=== PATIENT | female | born 1970 | race Hispanic/Latino ===

== ENCOUNTER 2016-08-28 19:31 | Emergency (ER) | payer OTHER ==
[~2016-08-28] VITALS: Ht 154.9 cm; Wt 56.7 kg
[~2016-08-28 19:31] MED LIST: DICLOFENAC SOD75 MG PO; ESCITALOPRAM10 MG PO; INDOMETHACIN ER75 MG PO; LEVOTHROID0.125 MG PO; VITAMIN D50000 IU PO
[2016-08-28 19:34] VITALS: BP 149/72
--- NOTE | 2016-08-28 20:04 | ED GI/GU/ABDOMINAL COMPLAINT ---
History of Present Illness General Chief Complaint: Allergy Symptoms Stated Complaint: ALLERGIC REACTION TO MEDS Source: patient Exam Limitations: no limitations Vital Signs & Intake/Output Vital Signs & Intake/Output Vital Signs Date Time Temp Pulse Resp B/P B/P Pulse O2 O2 Flow FiO2 Mean Ox Delivery Rate 08/28 1933 96.8 68 16 149/72 98 Room Air Allergies Coded Allergies: No Known Allergies (08/28/16) Reconcile Medications Cephalexin (Keflex) 500 MG CAPSULE 1 CAP PO TID uti ERGOCALCIFEROL (VITAMIN D2) (Vitamin D2) 50,000 IU SGL 50,000 IU PO Q30D VITAMIN D SUPPLEMENT (Reported) Escitalopram Oxalate 10 MG TAB 1 TAB PO DAILY MENTAL HEALTH (Reported) Indomethacin (Indomethacin ER) 75 MG CER 75 MG PO BID Pericarditis Levothyroxine Sodium (Levothroid) 0.125 MG TAB 0.125 MG PO DAILY AC THYROID ( Reported) Metronidazole (Flagyl) 500 MG TABLET 1 TAB PO BID infection Triage Note: PT TO ED C/O RASH/REACTION TO YEAST INFECTION MEDS. PT HAS TRIED MULTIPLE MEDICATIONS FOR SAME IN PAST PRESCRIBED BY OBGYN, STATES SHE'S ALLERGIC TO MULTIPLE. PT REPORTS LOCALIZED REACTION TO VAGINAL REGION. -[id number] SYMPTOMS Triage Nurses Notes Reviewed? yes ? n Is pt currently ? No HPI: Ms. Dupree is 46 yo f w/ PMH hypothyroidism and pericarditis presenting to the ED for vaginal discharge. Pt states she's had a yeast infection for over 2 months. She was seen as an outpatient by her OBGYN 2 months ago, noted to have a UTI and a yeast infection. Pt was given Abx and diflucan. Pt's dysuria improved some, but never truly resolved. Patient states she saw her LUGGAGE REPAIRER again and she was started on metronidazole cream, estradiol cream and another set of antibiotics. She states that these have not helped her symptoms. She continues to have vaginal itching as well is a white thick discharge. At times of discharge is foul smelling. Pain is worse with urination and she feels that her vulva is quite raw and irritated. Patient states that after she told her OB /[employer] M[employer] SET UP OPERATOR that her symptoms had not resolved, he told her that she likely was allergic to Diflucan and therefore she has not taken it since. Patient is and sexually active without condom use. She had a 1 night affair approximately 2 months ago, but she did use protection in the form of a condom at that point in time. No fevers or chills. No nausea vomiting diarrhea or abdominal pain. No CVA tenderness bilaterally. (HOWARD LOMBARDI MD) Past History Travel History Traveled to [place] past 21 day No Medical History Any Pertinent Medical History? see below for history Neurological: NONE EENT: NONE Cardiovascular: PeRICARDITIS Respiratory: NONE Gastrointestinal: NONE Hepatic: NONE Renal: NONE Musculoskeletal: NONE Psychiatric: NONE Endocrine: hypothyroidism Blood Disorders: NONE Cancer(s): NONE C[employer] M[employer] SET UP OPERATOR/Reproductive: CHRONIC YEAST INFX History of MRSA: No History of VRE: No History of CDIFF: No Influenza Vaccine: 01/16/15 Surgical History Surgical History: hysterectomy (for uterine fibroids), tubal ligation, right leg fracture with metal plates Psychosocial History Who do you live with Spouse Services at Home None What is your primary language [place]se Tobacco Use: Never used Family History Family History, If Any: BROTHER (heart disease). . BROTHER (Heart attacke <50 years old). . MOTHER (dementia (Alz) and RAHeart disease and breast cancer). FATHER (Heart disease before age 60Hypothyroidism). Hx Contributory? No (HOWARD LOMBARDI MD) Review of Systems Review of Systems Constitutional: Reports: see HPI. EENTM: Reports: no symptoms. Respiratory: Reports: no symptoms. Cardiovascular: Reports: no symptoms. GI: Reports: no symptoms. Genitourinary: Reports: discharge, dysuria, frequency, pain. Denies: hesitation. Musculoskeletal: Reports: no symptoms. Skin: Reports: no symptoms. Neurological/Psychological: Reports: no symptoms. Hematologic/Endocrine: Reports: no symptoms. Immunologic/Allergic: Reports: no symptoms. All Other Systems: Reviewed and Negative (HOWARD LOMBARDI MD) Physical Exam Physical Exam Gastrointestinal: normal bowel sounds Pelvic: tender w/ cervical motion, tender adnexa, mild swelling to the vulva. Obvious thick cottage cheese like discharge within the vaginal vault. Tenderness to palpation of the left adnexa with some mild CMT. Also some caldwell appearing discharge within the vaginal canal Comments: Well-developed well-nourished person in no acute distress HEENT: Normal EENT exam, extraocular motion intact, no nystagmus. PERRLA. Nose is atraumatic. Neck: Supple, no lymphadenopathy, normal range of motion without pain or tenderness Back: Nontender, no CVA tenderness. Full range of motion Cardiovascular: Regular rate and rhythms no murmurs rubs or gallops, normal JVP Respiratory: Chest nontender. No respiratory distress.breath sounds clear to auscultation bilaterally Abdomen: Soft, nontender nondistended, no appreciable organomegaly. Normal bowel sounds. No ascites Extremity: No edema, no calf tenderness to palpation, normal and equal pulses. Neuro: Alert oriented x3, motor sensory normal, cranial nerves II through XII grossly intact. Skin: No appreciable rash on exposed skin, skin is warm and dry. Psych: Mood and affect is normal, memory and judgment is normal. Core Measures ACS in differential dx? No Severe Sepsis Present: No Septic Shock Present: No (MARIA C GRIFFIN,HOWARD) Progress Differential Diagnosis: ovarian cyst, ovarian torsion, PID/cervicitis, PUD/GERD, UTI/pyelo, vaginal candidiasis Plan of Care: Orders Procedure Date/time Status CULTURE,URINE 08/28 2018 Active TRICHOMONAS 08/28 2018 Complete POTASSIUM HYDROXIDE (AISLINN) 08/28 2018 Complete GENITAL CULTURE 08/28 2018 Active CHLAMYDIA-GC DNA PROBE 08/28 2018 Active URINE 08/28 2018 Complete URINALYSIS 08/28 2018 Complete Laboratory Tests 08/28/162032: Urinalysis MOD H, Urine Color YEL, Urine Clarity HAZY H, Urine pH 6.5, Ur Specific [place] 1.020, Urine Protein TRACE H, Urine Ketones NEG, Urine Nitrite NEG, Urine Bilirubin NEG, Urine Urobilinogen 0.2, Ur Leukocyte Esterase MOD H, Ur Microscopic SEDIMENT EXAMINED, Urine RBC 1-3, Urine WBC 15-25 H, Ur Epithelial Cells FEW, Urine Bacteria MOD H, Urine Mucus MOD H, Micro UA Comment BUDDING YEAST H, Urine Hemoglobin NEG, Urine Glucose NEG, Urine Test NEGATIVE Microbiology 08/28 2049 GENITAL: GC DNA Probe - RECD 08/28 2049 GENITAL: Chlamydia DNA Probe (DESHAUN) - RECD 08/28 2049 GENITAL: AISLINN Preparation - COMP YEAST MOLD 08/28 2049 GENITAL: Trichomonas Preparation - COMP 08/28 2049 GENITAL: Genital Culture - RECD 08/28 2032 URINE ROUT: Urine Culture - RECD Patient is a generally well-appearing female with likely symptoms of vaginal candidiasis. Somewhat inappropriate treatment of candidiasis with estradiol cream and metronidazole cream. Patient was told from provider that she was allergic to Diflucan, however it is likely that her symptoms (itching, pain, and erythema) were all related to her partially untreated vaginal candidiasis, not an allergic reaction. Given the recent sexual encounter with an unknown person, and the patient's clinical examination with mild CMT tenderness at the left adnexa, plan to treat as PID. Vaginal swabs obtained and sent to the lab. Will administer Diflucan here in the emergency department and observed the patient for 30 minutes prior to discharge to confirm that she is in fact not allergic to Diflucan. We'll treat for PID with both ceftriaxone and azithromycin as well as metronidazole here in the emergency department. Clotrimazole cream was applied to the external vulva to improve her overall comfort. Patient understands the plan. Patient requested a referral for any LUGGAGE REPAIRER's within the area. Given 2 names of both the provider on-call and as well as Dr. Wu. He she will follow up with cultures obtained today to know whether to continue with her metronidazole for the next 2 weeks or not. (MARIA C GRIFFIN,HOWARD) Initial ED EKG: none (HOWARD LOMBARDI MD) Departure Departure Time of Disposition: 2110 Disposition: HOME OR SELF CARE Condition: Stable Clinical Impression Primary Impression: Vaginal candidiasis Secondary Impressions: UTI (urinary tract infection) Qualifiers: Urinary tract infection type: site unspecified Hematuria presence: without hematuria Qualified Code: N39.0 - Urinary tract infection, site not specified Vaginal discharge Vaginal pain Referrals: JOSE ALBERTO GRIFFIN,ANALILIA Carrasco (PCP/Family) SABRA GRIFFIN,JAYNE WU MD,SALEEM Peña Additional Instructions: Please take the full course of metronidazole. Make sure you do not drink alcohol while you are taking this. It will make you extremely sick with immediate nausea and vomiting. You can use a Monistat cream OTC set for Yeast infection in addition to the diflucan. It will help with the burning and raw feeling around the vagina. In order to find out the results of the vaginal swabs we obtain, you can call the emergency department at [phone]. Asked to speak to someone to get the results. Departure Forms: Customer Survey General Discharge Information Prescriptions: Current Visit Scripts Cephalexin (Keflex) 1 CAP PO TID #9 CAP Metronidazole (Flagyl) 1 TAB PO BID #14 TAB (MARIA C GRIFFIN,HOWARD) Resident Co-Sign Statement Statement: ED Attending supervision documentation- [X] I saw and evaluated the patient. I have also reviewed all the pertinent lab results and diagnostic results. I agree with the findings and the plan of care as documented in the Resident's documentation. [X] I have reviewed the ED Record and agree with the Resident's documentation. [] Additions or exceptions (if any) to the Resident's note and plan are summarized below: [] (ANNA MARIE GRIFFIN,PATRICIA Carrasco)
[2016-08-28] MEDS ORDERED: KEFLEX500 M1 PO (21:24)
[2016-08-28] MEDS ORDERED: FLAGYL500 MG PO (21:25)
== END 2016-08-28 21:49 ==
LOC: ERH 19:31
DX: B37.3 Candidiasis of vulva and vagina (principal); N39.0 Urinary tract infection, site not specified
CPT/HCPCS: 87070; 81001; 81025; 87071; 87086; 87491; 87591; 96372; J0456; J0696; J3101